=== PATIENT | female | born 1945 | race Caucasian/White ===

== ENCOUNTER 2023-07-02 11:48 | Emergency (ER) | payer OTHER ==
[2023-07-02 12:07] VITALS: BMI 24.5
[2023-07-02] MEDS ORDERED: ACETAMINOPHEN 500 MG TABLET (FP) ONE (12:24)
[2023-07-02] MEDS: ACETAMINOPHEN 500 MG TABLET (FP) PO ONE (12:26)
[2023-07-02 14:29] VITALS: BP 140/74; PULSE 82; RESP 20; TEMP 98.6
== END 2023-07-02 14:36 | disposition home or self-care (01) ==
LOC: JERFT 11:48
DX: S42.202A Unspecified fracture of upper end of left humerus, initial encounter for closed fracture (principal); W19.XXXA Unspecified fall, initial encounter
CPT/HCPCS: 71101-TC-LT-FY; 73030-TC-LT-FY; 73060-TC-LT-FY; 73502-TC-LT-FY; 73562-TC-LT-FY; 99284-25

== ENCOUNTER 2023-11-07 11:23 | Emergency (ER) | payer OTHER ==
[2023-11-07 11:38] VITALS: BP 166/83; PULSE 98; RESP 18; TEMP 99; BMI 23.2
[2023-11-07] MEDS ORDERED: ALBUTEROL SO4 2.5/IPRATROPIUM 0.5 INH SOL 3 ML VIAL.NEB. NEB ONE (14:12)
[2023-11-07] MEDS: ALBUTEROL SO4 2.5/IPRATROPIUM 0.5 INH SOL 3 ML VIAL.NEB. NEB ONE (14:20)
[2023-11-07] MEDS ORDERED: predniSONE 20 MG TABLET (UD) ONE (15:29)
[2023-11-07] MEDS: predniSONE 20 MG TABLET (UD) PO ONE (15:34)
== END 2023-11-07 15:46 | disposition home or self-care (01) ==
LOC: JER 11:23
PROC: 3E0F7GC Introduction of Other Therapeutic Substance into Respiratory Tract, Via Natural or Artificial Opening (ICD-10-PCS; principal; 2023-11-07)
DX: R05.9 Cough, unspecified (principal); Z20.822 Contact with and (suspected) exposure to COVID-19
CPT/HCPCS: 0241U-QW; 71046-TC-FY; 94640; 99284-25

== ENCOUNTER 2024-08-29 11:50 | Emergency (ER) | payer OTHER ==
[2024-08-29 12:10] VITALS: BP 159/69; PULSE 90; RESP 18; TEMP 98.2; BMI 24.3
[2024-08-29] MEDS ORDERED: ALBUTEROL SO4 2.5/IPRATROPIUM 0.5 INH SOL 3 ML VIAL.NEB. NEB ONE (14:11)
[2024-08-29] MEDS: ALBUTEROL SO4 2.5/IPRATROPIUM 0.5 INH SOL 3 ML VIAL.NEB. NEB ONE (14:16)
== END 2024-08-29 14:50 | disposition home or self-care (01) ==
LOC: JER 11:50
PROC: 3E0F7GC Introduction of Other Therapeutic Substance into Respiratory Tract, Via Natural or Artificial Opening (ICD-10-PCS; principal; 2024-08-29)
DX: R05.9 Cough, unspecified (principal); R09.81 Nasal congestion
CPT/HCPCS: 71046-TC-FY; 87637-QW; 99284-25